=== PATIENT | female | born 1990 | race Caucasian/White ===

== ENCOUNTER 2019-07-22 06:13 | Emergency (ER) | payer SELFPAY, OTHER ==
[2019-07-22] MEDS: BELLADONNA/PHENOBARBITAL TAB PO (06:43)
[2019-07-22] MEDS: LIDOCAINE/MYLANTA 40 ML BTL PO (06:45)
== END 2019-07-22 07:24 | disposition home or self-care (01) ==
LOC: FTE 06:13
DX: R10.9 Unspecified abdominal pain (principal)
CPT/HCPCS: 81025; 99283